=== PATIENT | male | born 1975 | race Caucasian/White ===

== ENCOUNTER 2023-04-01 16:31 | Emergency (ER) | payer BC ==
[2023-04-01 16:35] VITALS: TEMP 98
[2023-04-01] MEDS ORDERED: LIDOCAINE/EPINEPHR/TETRACAINE 5 ML BOTTLE TOPICAL ONE (16:50)
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
[2023-04-01 18:25] VITALS: BP 142/87; PULSE 68; RESP 16
== END 2023-04-01 18:33 | disposition home or self-care (01) ==
LOC: EC 16:31
DX: S01.01XA Laceration without foreign body of scalp, initial encounter (principal); W22.8XXA Striking against or struck by other objects, initial encounter
CPT/HCPCS: 12002; 70450; 99283